=== PATIENT | female | born 1970 | race African-American/Black ===

== ENCOUNTER 2018-11-09 18:17 | Emergency (ER) | payer MEDICAID ==
[~2018-11-09] VITALS: Ht 167.6 cm; Wt 126.0 kg
[2018-11-10] MEDS ORDERED: SODIUM CHLORIDE 0.9% 1,000 ML IV ONE (01:29)
[2018-11-10] MEDS ORDERED: INSULIN REGULAR (HUMULIN R) 300UNITS/3ML SUBCUT ONE (01:30)
[2018-11-10 01:51] LABS: CHLORIDE 100 mEq/L (98-107)
[2018-11-10 01:58] LABS: BASOPHILS % 0.6 % (0.0-2.0); BETA HYDROXYBUTYRATE 1.6 mMol/L (0.0-0.3); HCG SCREEN NEGATIVE; HEMATOCRIT. 44.1 % (36.0-48.0); HEMOGLOBIN. 14.6 g/dL (12.0-16.0); LYMPHOCYTES % 22.7 % (20.0-50.0); MEAN CORPUSCULAR HEMOGLOBIN 26.6 pg (28.0-32.0); MEAN CORPUSCULAR VOLUME 80.4 fL (81.0-99.0); MEAN PLATELET VOLUME 9.3 fl (7.4-10.4); NEUTROPHILS % 61.7 % (40.0-76.0); PLATELET 297 x1000/uL (130-400); RED BLOOD CELL COUNT 5.48 mill/uL (4.2-5.4); RED CELL DISTRIBUTION WIDTH 13.5 % (11.6-14.6)
[2018-11-10 04:30] VITALS: BP 127/92
== END 2018-11-10 04:30 | disposition home or self-care (01) ==
LOC: ER 18:29
DX: E11.9 Type 2 diabetes mellitus without complications (principal); R03.0 Elevated blood-pressure reading, without diagnosis of hypertension
CPT/HCPCS: 36415; 80053; 81025; 82010; 82962; 83036; 84703; 85025; 96372; 99283; J1815; J7030